=== PATIENT | female | born 1995 | race Two or more races ===

== ENCOUNTER 2018-08-13 11:43 | Emergency (ER) | payer OTHER ==
[~2018-08-13] VITALS: Ht 167.6 cm; Wt 47.6 kg
--- NOTE | 2018-08-13 12:08 | NUR ---
PT IS IN ROOM #1A. DR HEBERT EVALUATED THE PT.
[2018-08-13 12:24] LABS: *URINE HCG, QUAL NEGATIVE (NEGATIVE)
[2018-08-13] MEDS ORDERED: methylPREDNISolone SOD SUCC 125 MG/2 ML VIAL IM ONE (12:30)
[2018-08-13] MEDS ORDERED: methylPREDNISolone SOD SUCC 125 MG/2 ML VIAL ONE (12:37)
--- NOTE | 2018-08-13 12:48 | NUR ---
PT WAS D/C'd TO HOME . D/C INSTRUCTIONS GIVEN TO THE PT AND TO HER MOTHER.
[2018-08-13 12:51] VITALS: BP 125/75
== END 2018-08-13 12:51 | disposition home or self-care (01) ==
LOC: ER 11:46
DX: T78.3XXA Angioneurotic edema, initial encounter (principal)
CPT/HCPCS: 84703; 96372; 99283; J2930; A4663